=== PATIENT | female | born 1955 | race Caucasian/White ===

== ENCOUNTER 2017-02-26 22:33 | Emergency (ER) | payer BC ==
[2017-02-26 23:15] LABS: ABSOLUTE MONOCYTES (AUTO) 0.8 10^3/uL (0.1-1.4); ABSOLUTE NEUT (AUTO) 4.3 10^3/uL (1.7-8.2); BASOPHILS % (AUTO) 0.5 % (0-2); EOSINOPHILS % (AUTO) 0.5 % (0-6); HEMATOCRIT 42.4 % (36.0-47.0); HEMOGLOBIN 15.1 g/dL (12.0-15.5); HGB HCT DIFFERENCE 2.9; LYMPHOCYTES % (AUTO) 27.8 % (13-45); MEAN CORPUSCULAR HEMOGLOBIN 31.7 pg (27.0-33.4); MEAN CORPUSCULAR HGB CONC 35.7 g/dL (32.0-36.0); MEAN CORPUSCULAR VOLUME 89 fl (80-97); MONOCYTES % (AUTO) 11.1 % (3-13); RED BLOOD COUNT 4.78 10^6/uL (3.72-5.28); RED CELL DISTRIBUTION WIDTH 12.8 % (11.5-14.0); SEGMENTED NEUTROPHILS % (AUTO) 60.1 % (42-78); WHITE BLOOD COUNT 7.2 10^3/uL (4.0-10.5)
[2017-02-26 23:27] LABS: APPEARANCE,URINE CLEAR; BILIRUBIN,URINE NEGATIVE (NEGATIVE); GLUCOSE, URINE NEGATIVE (NEGATIVE); KETONES,URINE 20 mg/dL (NEGATIVE); LEUKOCYTE ESTERASE,URINE SMALL (NEGATIVE); NITRITE,URINE NEGATIVE (NEGATIVE); PROTEIN,URINE NEGATIVE (NEGATIVE); URINE SPECIFIC GRAVITY 1.008; UROBILINOGEN,URINE NEGATIVE mg/dL (<2.0)
[2017-02-26 23:41] LABS: ALANINE AMINOTRANSFERASE 40 U/L (9-52); ALBUMIN 4.5 g/dL (3.5-5.0); ALKALINE PHOSPHATASE 83 U/L (38-126); ANION GAP 13 (5-19); ASPARTATE AMINO TRANSFERASE 30 U/L (14-36); BILIRUBIN,DIRECT 0.4 mg/dL (0.0-0.4); BILIRUBIN,TOTAL 1.4 mg/dL (0.2-1.3); BLOOD UREA NITROGEN 11 mg/dL (7-20); CALCIUM 9.8 mg/dL (8.4-10.2); CARBON DIOXIDE 25 mmol/L (22-30); CHLORIDE 105 mmol/L (98-107); CREATININE RESULT 0.72 mg/dL (0.52-1.25); GLUCOSE 97 mg/dL (75-110); LIPASE 108.8 U/L (23-300); SODIUM 142.6 mmol/L (137-145)
--- NOTE | 2017-02-27 00:16 | ER Document Report ---
ED GI/ - General Chief Complaint: Flank Pain Stated Complaint: BACK PAIN Time Seen by Provider: 02/26/17 23:56 Mode of Arrival: Ambulatory Information source: Patient TRAVEL OUTSIDE OF THE [place] IN LAST 30 DAYS: No - HPI Patient complains to provider of: Flank pain Notes: 02/27/17 00:13 61-year-old female with history of hysterectomy presents with right flank pain since yesterday. Pain is much worse with movement. Sharp and constant not relieved with ibuprofen. Mild nausea but no vomiting. Normal stools without diarrhea or melena. Denies hematuria or dysuria. No pelvic discomfort. Pain nonradiating otherwise. No rash noted. No pleuritic component, cough or cold symptoms, hemoptysis or shortness of breath. - Related Data Allergies/Adverse Reactions: No Known Allergies Allergy (Verified 02/26/17 22:37) Past Medical History - Social History Smoking Status: Never Smoker Family History: Reviewed & Not Pertinent Patient has suicidal ideation: No Patient has homicidal ideation: No Renal/ Medical History: Denies: Hx Peritoneal Dialysis Review of Systems - Review of Systems -: Yes All other systems reviewed and negative Physical Exam - Vital signs Vitals: Temp Pulse Resp BP Pulse Ox 98.4 F 89 18 139/72 H 96 02/26/17 22:37 02/26/17 22:37 02/26/17 22:37 02/26/17 22:37 02/26/17 22:37 - Notes Notes: GENERAL: VS as per nursing doc. Well-appearing, well-nourished and in no acute distress. Some pain is noticeable when patient goes from lying to sitting position HEAD: Atraumatic, normocephalic. EYES: Pupils equal round and reactive to light, extraocular movements intact, sclera anicteric, no conjunctival injection or discharge. ENT: Nares patent, oropharynx clear without exudates, moist mucous membranes. NECK: Normal range of motion, supple without lymphadenopathy. LUNGS: Breath sounds clear to auscultation bilaterally and equal. No wheezes rales or rhonchi. HEART: Regular rate and rhythm without murmurs. ABDOMEN: Soft, non-tender, normoactive bowel sounds. No guarding, no rebound. No masses appreciated. No Vanderbilt sign. BACK: Tenderness in the right flank region slightly more lateral to the CVA area. Extends to the mid axillary line subcostally. EXTREMITIES: Normal range of motion, no calf tenderness, no edema. NEUROLOGICAL: Cranial nerves grossly intact. Normal speech. Normal sensory and motor exams. No gross cerebellar abnormalities. PSYCH: Normal mood, normal affect. SKIN: Warm, dry, normal turgor, no lesions noted. No shingles rash. Course - Re-evaluation Re-evalutation: 02/27/17 00:57 Patient laboratory studies were reviewed and showed no significant abnormality. There were 6 WBCs on her urine culture but clinically this does not appear to be pyelonephritis and she has no urinary symptoms at all. I will have them culture this for that reason. Clinically seems more musculoskeletal with the significant pain with movement as well as palpable tenderness without deformity. Discussed with her CT findings and follow-up of the hepatic CT findings that were performed without contrast. As well, will consider using lidocaine patches to see if she can get some improvement with that. She understands warning signs to watch for including follow-up urinary changes or other. - Vital Signs Vital signs: Temp Pulse Resp BP Pulse Ox 98.4 F 89 18 139/72 H 96 02/26/17 22:37 02/26/17 22:37 02/26/17 22:37 02/26/17 22:37 02/26/17 22:37 - Laboratory Result Diagrams: 02/26/17 22:50 02/26/17 22:50 Laboratory results interpreted by me: 02/26/17 02/26/17 22:50 22:50 Total Bilirubin 1.4 H Urine Ketones 20 H Ur Leukocyte Esterase SMALL H Discharge - Discharge Clinical Impression: Flank pain Condition: Good Disposition: HOME, SELF-CARE Instructions: Toradol Injection ([facility]), Abdominal Pain ([facility]) Additional Instructions: Please contact your physician for follow-up in the next couple of days. Watch for rash in case this is an early shingles outbreak. Continue an anti- inflammatory such as ibuprofen or Aleve. May use the Lidoderm prescribed patches or [id number] lidocaine 4% patches as directed. Please return for worsening or fever, other significant change. A urine culture will take a couple of days to get back. Prescriptions: Lidocaine [Lidoderm 5% (700 mg) Transdermal Patch] 1 patch TP Q12H PRN #5 adh..patch PRN Reason: Pain. Forms: Elevated Blood Pressure
--- NOTE | 2017-02-27 00:51 | RADIOLOGY REPORT (SQ) ---
EXAM DESCRIPTION: CT ABDOMEN AND PELVIS WITHOUT CONTRAST CLINICAL HISTORY: Colicky right Flank pain COMPARISON: None Available. TECHNIQUE: CT of the abdomen and pelvis without IV contrast. FINDINGS: Abdomen: The liver has normal size and density. 0.1 cm hypodensity in the inferior right hepatic lobe is not definitely cystic. No calcified gallstones. The spleen, pancreas, and adrenal glands are unremarkable. The kidneys have normal size and contour without evidence of hydronephrosis. No obstructing ureteral calculi. Aortoiliac atherosclerosis without aneurysm. No free intraperitoneal air. Small hiatal hernia. Pelvis: Prior hysterectomy. Urinary bladder is unremarkable. No free pelvic fluid or lymphadenopathy. No dilated loops of large or small bowel. Normal appendix. The visualized lung bases are clear. No destructive bone lesions identified. DLP: 762.44 mGy-cm IMPRESSION: 1. No acute inflammatory or obstructive abnormality identified. 2. 1.1 cm hypodensity in the right hepatic lobe is incompletely characterized without IV contrast. Three-phase hepatic CT in 3-6 months recommended for more accurate characterization. 3. Small hiatal hernia. This exam was performed according to our departmental dose-optimization program, which includes automated exposure control, adjustment of the mA and/or kV according to patient size and/or use of iterative reconstruction technique.
[2017-02-27] MEDS ORDERED: KETOROLAC TROMETHAMINE 60 MG/2 ML SDV IM ONE (00:55)
[2017-02-27 01:25] VITALS: BP 132/74
== END 2017-02-27 01:24 | disposition home or self-care (01) ==
LOC: ER 22:33
DX: R10.9 Unspecified abdominal pain (principal); R11.0 Nausea; Z90.710 Acquired absence of both cervix and uterus
CPT/HCPCS: 99284; 96372; 36415; 87086; 83690; 85025; 80053; 81001; 76380; J1885